=== PATIENT | male | born 1970 ===

== ENCOUNTER 2016-03-10 09:35 | Emergency (ER) | payer SELFPAY ==
[2016-03-10] MEDS ORDERED: IBUPROFEN 800 MG TABLET ONE (10:39)
[2016-03-10] MEDS ORDERED: OXYCODONE/ACETAMINOPHEN 5/325 MG TABLET ONE (10:39)
--- NOTE | 2016-03-10 10:43 | RAD ---
EXAMINATION:LOWER LEG RIGHT Two- Views CLINICAL INDICATION:Leg pain. Injury to mid tibia. Continued pain. Initial encounter. COMPARISON:None FINDINGS: No fracture or focal destruction is identified. The joint space relationships of the knee and ankle are maintained No soft tissue abnormality is identified. IMPRESSION: Negative radiographic examination of the right lower extremity.
== END 2016-03-10 12:36 | disposition home or self-care (01) ==
LOC: ED 09:35
DX: S80.10XA Contusion of unspecified lower leg, initial encounter (principal); F17.210 Nicotine dependence, cigarettes, uncomplicated; W22.8XXA Striking against or struck by other objects, initial encounter
CPT/HCPCS: 73590; 99283 ×2; A9270 ×2